=== PATIENT | male | born 1935 | race Caucasian/White ===

== ENCOUNTER 2017-05-22 12:31 | Inpatient (IN) | payer OTHER ==
[~2017-05-22] VITALS: Ht 175.3 cm; Wt 76.7 kg
[~2017-05-22 12:31] MED LIST: ATENOLOL50 MG PO; ATORVASTATIN CA20 MG PO; CILOSTAZOL100 MG PO; FENOFIBRATE145 MG PO; GABAPENTIN300 MG PO; LASIX40 MG PO; POTASSIUM CHLO20 ME1 PO; TAMSULOSIN HCL0.4 MG PO; ZOFRAN ODT4 MG PO
--- OUTSIDE RECORDS SUMMARY | 2017-05-22 12:33 | XMS REPORT ---
[facility] Address Unknown Phone Unavailable Care Team Providers Care Hub Cutter Apprentice Name Role Phone ALFONSO MACIEL Unavailable Unavailable Problems This patient has no known problems. Allergies, Adverse Reactions, Alerts This patient has no known allergies or adverse reactions. Medications This patient has no known medications. Results Test Description Test Time Test Comments Text Results Atomic Results Result Comments CHEST 2 VIEWS [place] [address] Patient Name: ALMA RAZO MR #: [id number] : 1935 Age/Sex: 81/M Req #: [id number] Adm Physician: Ordered by: ALFONSO MACIEL MD Report #: [id number] Location: [facility] Room/Bed: Procedure: [id number] DX/CHEST 2 VIEWS Exam Date: 01/30/17 Exam Time : 1330 REPORT STATUS: Signed PROCEDURE: X-RAY CHEST, TWO VIEWS COMPARISON: None. INDICATIONS: PATIENT FELL ON LEFT KNEE, R/O PUMONARY EDEMA FINDINGS: Lungs are well-inflated. No focal airspace consolidation , pleural effusion, or pneumothorax. Right apical calcified granuloma. Symmetric nodular opacities project over the lower lung zones compatible with nipple shadows. Tortuosity and atherosclerotic calcification of the thoracic aorta with otherwise normal heart size and ovarian vasculature. No acute osseous abnormality. Incompletely healed distal left clavicular fracture. Multilevel degenerative changes of the thoracic spine. CONCLUSION: No acute cardiopulmonary abnormality. No pulmonary edema per clinical query. Age indeterminate though likely subacute-chronic incompletely healed distal left clavicular fracture. Dictated by: Corin Stephenson M.D. on 01/30/2017 at 14:06 Electronically approved by: Corin Stephenson M.D. on 01/30/2017 at 14:06 Dictated By: CORIN STEPHENSON MD [id number] Transcribed By: KAYLA on 01/30/17 1406 COPY TO: ALFONSO MACIEL MD KNEE LEFT THREE VIEWS [place] [address] Patient Name: ALMA RAZO MR #: [id number] : 1935 Age/Sex: 81/M Req #: [id number] Adm Physician: Ordered by: ALFONSO MACIEL MD Report #: [id number] Location: [facility] Room/Bed: Procedure: [id number] DX/KNEE LEFT THREE VIEWS Exam Date: 01/30/17 Exam Time: 1330 REPORT STATUS: Signed PROCEDURE: X- RAY LEFT KNEE, THREE OR MORE VIEWS COMPARISON: None. INDICATIONS: LEFT KNEE PAIN DUE TO FALL FINDINGS: No acute, displaced fracture or dislocation. Moderate tricompartmental joint space narrowing with meniscal calcification and partial medial meniscal extrusion. Small nonspecific suprapatellar joint effusion. Atherosclerotic vascular calcifications. CONCLUSION: No acute osseous abnormality. 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 Dictated by: Corin Stephenson M.D. on 01/30/2017 at 14:09 Electronically approved by: Corin Stephenson M.D. on 01/30/2017 at 14:09 Dictated By: CORIN STEPHENSON MD 140 Transcribed By: KAYLA on 01/30/171408 COPY TO: ALFONSO MACIEL MD
[2017-05-22 14:57] LABS: BASOPHILS % 0.3 % (0.0-1.0); EOSINOPHILS # (AUTO) 0.1 (0.0-0.4); HEMATOCRIT 37.1 % (38.2-49.6); HEMOGLOBIN 12.9 g/dL (14.0-18.0); LYMPHOCYTES # (AUTO) 2.3 (1.0-3.2); LYMPHOCYTES % 28.6 % (18.0-39.1); MEAN CORPUSCULAR HEMOGLOBIN 35.5 pg (28-32); MEAN CORPUSCULAR HGB CONC 34.8 g/dL (31-35); MEAN CORPUSCULAR VOLUME 102.2 fL (81-99); MONOCYTES # (AUTO) 0.6 (0.2-0.8); MONOCYTES % 8.1 % (4.4-11.3); NEUTROPHILS # (AUTO) 4.9 (2.1-6.9); NEUTROPHILS % 61.7 % (38.7-80.0); PLATELET COUNT 160 x10e3/uL (140-360); RED BLOOD COUNT 3.63 x10e6/uL (4.3-5.7); RED CELL DISTRIBUTION WIDTH 11.1 % (11.7-14.4)
[2017-05-22 15:01] LABS: INR 1.25; PROTHROMBIN TIME 14.8 seconds (11.9-14.5)
[2017-05-22 15:02] LABS: PARTIAL THROMBOPLASTIN TIME 29.9 seconds (23.8-35.5)
[2017-05-22 15:10] LABS: ALANINE AMINOTRANSFERASE 21 IU/L (0-55); ALBUMIN 3.2 g/dL (3.5-5.0); ALBUMIN/GLOBULIN RATIO 0.9 (0.8-2.0); ALKALINE PHOSPHATASE 75 IU/L (40-150); ANION GAP 10.9 mmol/L (8-16); BLOOD UREA NITROGEN 18 mg/dL (7-26); BUN/CREATININE RATIO 17 (6-25); CALCIUM 9.8 mg/dL (8.4-10.2); CARBON DIOXIDE 28 mmol/L (22-29); CHLORIDE 103 mmol/L (98-107); CREATINE KINASE 81 IU/L (30-200); CREATININE, SERUM 1.03 mg/dL (0.72-1.25); EST GLOMERULAR FILTRATION RATE > 60 ML/MIN (60-); GLUCOSE 104 mg/dL (74-118); POTASSIUM 3.9 mmol/L (3.5-5.1); SODIUM 138 mmol/L (136-145)
--- NOTE | 2017-05-22 15:13 | Diagnostic Imaging Report ---
PROCEDURE: A single AP view of the chest. COMPARISON: Patients [facility], , CHEST 2 VIEWS, 01/30/2017, 13:10. INDICATIONS: CONGESTION, SHORTNESS OF BREATH FINDINGS: Lines/tubes: None. Lungs: Lungs are well-inflated. Ill-defined patchy air space opacity likely in the left lower lobe. Rest of the lungs is clear. Pleura: There is no pleural effusion or pneumothorax. Heart and mediastinum: Cardiac silhouette is unremarkable. Pulmonary vasculature is normal. Bones: No acute bony abnormality. IMPRESSION: 1. findings may represent atelectasis versus developing pneumonia, in the appropriate clinical setting. Recommend chest PA and lateral in 4-6 weeks after appropriate treatment to document resolution. Peewee Proctor M.D. Dictated by: Peewee Proctor M.D. on 05/22/2017 at 15:14 Electronically approved by: Peewee Proctor M.D. on 05/22/2017 at 15:14
[2017-05-22] MEDS ORDERED: AZITHROMYCIN 500MG/NS 250 ML 250 ML IV ONE (18:15)
[2017-05-22] MEDS ORDERED: CEFTRIAXONE SOD 1 GM VIAL IV ONE (18:15)
[2017-05-22] MEDS ORDERED: ALBUTEROL/IPRATROPIUM 3 ML NEB NEB ONE (18:15)
[2017-05-22] MEDS ORDERED: SODIUM CHLORIDE FLUSH 10 ML SYR INJ PRN (18:30)
[2017-05-22] MEDS ORDERED: AZITHROMYCIN 500MG/SOD CHL 0.9% 250ML BAG IV SCH (18:30)
[2017-05-22] MEDS: ALBUTEROL/IPRATROPIUM 3 ML NEB NEB SCH (19:40)
[2017-05-22 20:12] VITALS: BP 162/79
[2017-05-22] MEDS ORDERED: SODIUM CHLORIDE 0.9% 250ML 250 ML ONE (20:31)
[2017-05-22] MEDS: AZITHROMYCIN 500MG/NS 250 ML 250 ML IV SCH (20:51)
[2017-05-22 21:20] VITALS: BP 162/79
[2017-05-23] VITALS (8 sets, daily range): BP systolic 102–162; BP diastolic 55–88
[2017-05-23] MEDS ORDERED: SYSTANE BALANCE10 ML OP (01:30)
[2017-05-23] MEDS ORDERED: FUROSEMIDE80 MG PO (01:30)
[2017-05-23] MEDS ORDERED: B-12500 MCG PO (01:30)
[2017-05-23] MEDS ORDERED: VITAMIN B-1100 M1 PO (01:30)
[2017-05-23] MEDS ORDERED: ACETAMINOPHEN500 MG PO (01:30)
[2017-05-23] MEDS ORDERED: FOLIC ACID1 MG PO (01:30)
[2017-05-23] MEDS ORDERED: METOPROLOL SUCC25 MG PO (01:30)
[2017-05-23] MEDS ORDERED: ONE DAILY MEN'1 EACH (01:30)
[2017-05-23] MEDS: ALBUTEROL/IPRATROPIUM 3 ML NEB NEB SCH ×3 (07:00→20:50)
--- NOTE | 2017-05-23 08:12 | Diagnostic Imaging Report ---
PROCEDURE: X-RAY CHEST, TWO VIEWS COMPARISON: 05/22/2017. INDICATIONS: LEFT LOWER LOBE PNEUMONIA, SHORTNESS OF BREATH FINDINGS: Patchy left lower lobe airspace disease is unchanged. No new consolidation. Symmetric nodular opacities project over the lower lungs compatible with nipple shadows. No pleural effusion or pneumothorax. Stable cardiomediastinal contour with tortuosity and atherosclerotic calcification of the thoracic aorta. No acute osseous abnormality. CONCLUSION: Unchanged patchy left lower lobe airspace disease which may reflect atelectasis or developing pneumonia in the correct clinical setting. As previously recommended, followup chest radiograph in 6-8 weeks should be performed. Dictated by: Scott Fuentes M.D. on 05/23/2017 at 8:12 Electronically approved by: Scott Fuentes M.D. on 05/23/2017 at 8:12
[2017-05-23] MEDS ORDERED: ONDANSETRON HCL 4 MG ORAL DISINTEGRATING TAB PO PRN (09:15)
[2017-05-23] MEDS ORDERED: PREDNISONE 10 MG TAB PO NR (09:45)
--- NOTE | 2017-05-23 09:45 | History and Physical ---
PCP: Dr. Yasir Jameson CHIEF COMPLAINT: Shortness of breath and wheezing. HISTORY: The patient is an 80-year-old male who has had upper respiratory symptoms for the past 3 weeks. Came to see Dr. Jameson yesterday, and he was sent to the emergency room for evaluation. The patient's WBC was normal at 7.6. There is no left shift. The patient has some dense infiltrates on the chest x-ray. The patient was admitted for further evaluation. PAST MEDICAL HISTORY: Including disease, history of hypertension, approximately 3.5 weeks ago. Ex-smoker for years, hypertension, coronary artery disease, enlarged prostate, arthritis. PAST SURGICAL HISTORY: Noncontributory. SOCIAL HISTORY: Again, the patient is a former smoker. He stopped smoking approximately 3.5 years ago. ALLERGIES: NO KNOWN ALLERGIES. HOME MEDICATIONS: Reviewed. REVIEW OF SYSTEMS: Cough, shortness of breath much improved. PHYSICAL EXAMINATION VITAL SIGNS: Temperature 97, blood pressure 130/66, pulse rate 79, respirations 19. GENERAL: The patient is in no acute distress. HEENT: Normocephalic, atraumatic and nonicteric. NECK: Supple grossly. PULMONARY: Diminished breath sounds at the bases. CARDIOVASCULAR: Regular rate and rhythm. ABDOMEN: Soft and unremarkable. EXTREMITIES: No cyanosis, clubbing or edema. NEURO: . LABORATORY: Sodium 138, potassium , , , , 104. Hemoglobin 12.9, hematocrit and platelets . IMPRESSION 1. Left pleural infiltrate. 2. Pneumonia. PLAN: CT of the chest for better . Continue with IV antibiotics. Continue home medications. . Job#: [id number] KOLBY
--- NOTE | 2017-05-23 10:09 | Diagnostic Imaging Report ---
PROCEDURE: CT CHEST WITHOUT CONTRAST CT scan of the chest WITHOUT intravenous contrast, using standard protocol. TECHNIQUE: The chest was scanned utilizing a multidetector helical scanner from the apex to the level of the adrenal glands. No IV contrast was administered because of referring physician request. Coronal and sagittal multiplanar reformations were obtained. COMPARISON: None. INDICATIONS: Chest x-ray 05/23/2017 FINDINGS: Lines/tubes: None. Lungs and Airways: No consolidations. Linear opacity in the left lower lobe presumably corresponding to the radiographic abnormality , representing subsegmental atelectasis. Scattered foci of linear scar within the bilateral upper lobes and dependent portions of the lower lobes. No bronchiectasis. A small amount of debris within the trachea, without evidence of central airway obstruction. No gross fibrotic change. Pleura: Prominent extrapleural fat on the left. No pleural effusion or pneumothorax. Heart and mediastinum: No axillary, hilar, or mediastinal lymphadenopathy. No ectasia or aneurysmal dilatation of the thoracic aorta. Extensive atherosclerotic vascular disease of the aortic arch, great vessel origins, and coronary arteries. Pulmonary outflow tract is of normal caliber. Heart size is normal. No pericardial effusion. Soft tissues: Mild bilateral gynecomastia. Abdomen: The visualized portions of the liver, spleen, and adrenal glands are unremarkable. Partially visualized hypoattenuating lesion projecting from the upper pole of the right kidney likely represents a simple cyst but is incompletely characterized in the absence of intravenous contrast. Bones: No acute osseous abnormalities. Multilevel degenerative disc changes of the thoracic spine. IMPRESSION: No consolidative pneumonia. Linear opacity in the left lower lobe reflects subsegmental atelectasis and likely corresponds to the finding described on the comparison chest radiograph. Atherosclerotic vascular disease. Dictated by: Scott Fuentes M.D. on 05/23/2017 at 10:09 Electronically approved by: Scott Fuentes M.D. on 05/23/2017 at 10:09
[2017-05-23] MEDS: TAMSULOSIN HCL 0.4 MG CAP PO SCH (10:21)
[2017-05-23] MEDS: LEVOFLOXACIN 500 MG TAB PO SCH (10:21)
[2017-05-23] MEDS: GUAIFENESIN 600 MG TAB PO SCH ×2 (10:21→22:06)
[2017-05-23] MEDS: FOLIC ACID 1 MG TAB PO SCH (10:21)
[2017-05-23] MEDS: THIAMINE HCL 100 MG TAB PO SCH (10:21)
[2017-05-23] MEDS: CILOSTAZOL 100 MG TAB PO SCH (10:21)
[2017-05-23] MEDS: FENOFIBRATE 48 MG TAB PO SCH (10:21)
[2017-05-23] MEDS: ARTIFICIAL TEARS (OPTH) 15 ML BTL OU SCH (11:45)
[2017-05-23] MEDS: AZITHROMYCIN 500MG/NS 250 ML 250 ML IV SCH (18:00)
[2017-05-23] MEDS ORDERED: ATORVASTATIN 20 MG TAB PO SCH (21:00)
[2017-05-23] MEDS ORDERED: ATORVASTATIN 40 MG TAB PO SCH (21:00)
[2017-05-24] VITALS: BP_SYST 102; BP_SYST 110; BP_DIAS 55; BP_DIAS 58
[2017-05-24] MEDS: ALBUTEROL/IPRATROPIUM 3 ML NEB NEB SCH ×3 (00:30→06:42)
[2017-05-24 04:00] VITALS: BP 115/53
[2017-05-24] MEDS ORDERED: NON-FORMULARY MEDICATION (Thiamine Mononitrate (Vitamin B-1) 100 MG) PO SCH (09:00)
[2017-05-24] MEDS ORDERED: FENOFIBRATE 145 MG TAB PO SCH (09:00)
[2017-05-24] MEDS ORDERED: PROPYLENE GLYCOL OP SCH (09:00)
[2017-05-24] MEDS ORDERED: FUROSEMIDE 40 MG TAB PO SCH (09:00)
[2017-05-24] MEDS ORDERED: METOPROLOL SUCCINATE 25 MG TAB XL PO SCH (09:00)
[2017-05-24] MEDS: FENOFIBRATE 48 MG TAB PO SCH (09:00)
[2017-05-24] MEDS ORDERED: NON-FORMULARY MEDICATION (Furosemide 80 MG) PO SCH (09:00)
[2017-05-24] MEDS ORDERED: PREDNISONE 10 MG TAB PO SCH (09:00)
[2017-05-24] MEDS ORDERED: POTASSIUM CHLORIDE 20 MEQ TAB CR PO SCH (09:00)
[2017-05-24] MEDS: ARTIFICIAL TEARS (OPTH) 15 ML BTL OU SCH (09:25)
[2017-05-24] MEDS: TAMSULOSIN HCL 0.4 MG CAP PO SCH (09:25)
[2017-05-24] MEDS: FOLIC ACID 1 MG TAB PO SCH (09:25)
[2017-05-24] MEDS: LEVOFLOXACIN 500 MG TAB PO SCH (09:26)
[2017-05-24] MEDS: CILOSTAZOL 100 MG TAB PO SCH (09:26)
[2017-05-24] MEDS: THIAMINE HCL 100 MG TAB PO SCH (09:26)
[2017-05-24] MEDS: GUAIFENESIN 600 MG TAB PO SCH (09:26)
--- NOTE | 2017-05-24 10:03 | Discharge Summary ---
PCP: Dr. Yasir Jameson The patient was in observation. FINAL DIAGNOSES 1. Acute exacerbation of chronic obstructive pulmonary disease. 2. Acute bronchitis. 3. Reactive airway disease. SUMMARY: Patient is an 81-year-old male came in with shortness of breath and wheezing. Patient received nebulizer treatments. He is doing much better. Chest x-ray showed possible pneumonia, but CT of chest showed only atelectasis. No pneumonia. No consolidation. The patient is otherwise stable. He is an ex-smoker. Patient will be discharged home today. DISCHARGE MEDICATIONS 1. Doxycycline 100 mg b.i.d. for 10 days. 2. Mucinex 600 mg b.i.d. p.r.n. for cough. 3. Symbicort 160 per 4.55 mcg 2 puffs b.i.d. nebulizer. 4. DuoNeb p.r.n. 5. ProAir HFA. 6. Medrol Dosepak to finish. 7. Tessalon Perles 100 mg one q.4 h. as needed for cough. Patient is stable and discharged home today. Advised the patient to follow up with Dr. Yasir Jameson. . The patient is stable. He is comfortable. He is much better, and will be discharged home today. He will resume his home medications. Job#: [id number] KOLBY
[2017-05-24 10:08] VITALS: BP 105/51
== END 2017-05-24 11:15 | disposition home or self-care (01) | DRG 192 ==
LOC: ER 12:50 → ERHOLD 18:53 → MED/SURG 19:54
PROVIDERS: ADMIT Internal Medicine; ATTEND Internal Medicine
DX: J44.1 Chronic obstructive pulmonary disease with (acute) exacerbation (principal); I10 Essential (primary) hypertension; J20.9 Acute bronchitis, unspecified; J44.0 Chronic obstructive pulmonary disease with (acute) lower respiratory infection; Z87.891 Personal history of nicotine dependence; I25.10 Atherosclerotic heart disease of native coronary artery without angina pectoris
CPT/HCPCS: 36415; 71045; 71046; 71250; 80053; 82550; 82553; 82948; 83880; 84484; 85025; 85610; 85730; 87040; 87400; 93005; 94640; 99284; J0456; J0696; J3411; J7050

== ENCOUNTER → 2018-01-30 | Day surgery (SDC) | payer OTHER ==
[~2018-01-30] MED LIST changes: +ACETAMINOPHEN/CODEINE 300MG - 30MG TAB ONE; +ACETAMINOPHEN500 MG PO; +B-12500 MCG PO; +BELLADONNA/OPIUM 60 MG SUPP PR ONE; +CEFAZOLIN SOD 1 GM VIAL ONE; +DEXAMETHASONE SOD PHOS INJ 4 MG/ML VIAL ONE; +FENTANYL CITRATE/PF 100MCG/2 ML INJ ONE; +FOLIC ACID1 MG PO; +FUROSEMIDE80 MG PO; +IOPAMIDOL 610MG/1ML 300 MG/ML VIAL IV ONE; +LIDOCAINE HCL 2% LOCAL INJ 5 ML SDV VIAL INJ ONE; +METOPROLOL SUCC25 MG PO; +MIDAZOLAM HCL 2 MG/2 ML VIAL ONE; +ONDANSETRON HCL INJ 2 MG/ML VIAL ONE; +ONE DAILY MEN'1 EACH; +PROPOFOL IV EMULSION 10 MG/ML 20 ML VIAL ONE; +SEVOFLURANE INHAL SOLN 250 ML PEN BTL ONE; +SYSTANE BALANCE10 ML OP; +VITAMIN B-1100 M1 PO
[2018-01-30 12:25] VITALS: BP 134/68
--- NOTE | 2018-01-30 14:18 | Operative Report ---
DATE OF PROCEDURE: January 30, 2018 SERVICE: Urology. PREOPERATIVE DIAGNOSES 1. Multiple bladder tumors. 2. Hematuria. 3. BPH. POSTOPERATIVE DIAGNOSES 1. Multiple bladder tumors. 2. Hematuria. 3. BPH. OPERATION PERFORMED 1. Cystoscopy and bilateral retrograde pyelograms under fluoroscopic control. 2. Transurethral resection of multiple bladder tumors, all together more than 5 cm in size. 3. Interpretation of x-ray, radiologist not present. 4. Supervision of fluoroscopy. WORK FORCE ADVISOR: None. ANESTHESIA: General. CLINICAL INDICATION NOTE: This is an 82-year-old patient who was found to have bladder tumors. He was brought for assessment of the upper tract and resection of the tumors. Procedure was discussed with the patient and his son. Potential benefits and complications explained and accepted. DESCRIPTION OF PROCEDURE AND FINDINGS: After proper level of anesthesia was achieved, the patient was placed in lithotomy position, prepped and draped in the usual sterile fashion. Urethra was inspected and is unremarkable. The outlet is obstructed by a large prostate. Bladder is somewhat trabeculated. Several areas of tumor are present, 2 areas in the dome and 1 on the trigone. Both ureteral orifices were identified. Cone-tip catheters were used for bilateral retrograde pyelograms under fluoroscopic control. No intrinsic lesions were identified in the upper collecting system or ureters. Following this, resectoscope was inserted, and systematic resection of all tumor was done. All the areas that were resected were carefully coagulated. No significant bleeding was noticed. Following this, a B and O suppository was placed and a 22-Kyrgyz, 3-way Horn catheter with 30-mL balloon was inserted and connected to continuous irrigation. Patient tolerated the procedure well. The specimen was sent to pathology in formalin. Patient will be keeping the Horn for 10 days. Follow up next week in my office. Job#: [id number]
== END | disposition home or self-care (01) ==
LOC: OR 07:23
PROVIDERS: ATTEND Urology
DX: C67.1 Malignant neoplasm of dome of bladder (principal); C67.0 Malignant neoplasm of trigone of bladder; N40.0 Benign prostatic hyperplasia without lower urinary tract symptoms; I12.9 Hypertensive chronic kidney disease with stage 1 through stage 4 chronic kidney disease, or unspecified chronic kidney disease; N18.9 Chronic kidney disease, unspecified; R73.03 Prediabetes; I45.10 Unspecified right bundle-branch block; Z01.810 Encounter for preprocedural cardiovascular examination
CPT/HCPCS: 36415; 52240; 74420; 82948; 88305; 93005; C1758; J0690; J1100; J2001; J2250; J2405; J2704; Q9967

== ENCOUNTER → 2018-06-05 | Day surgery (SDC) | payer MEDICARE ==
[2018-06-04 11:36] LABS: BASOPHILS % 0.3 % (0.0-1.0); EOSINOPHILS # (AUTO) 0.1 (0.0-0.4); EOSINOPHILS % 1.2 % (0.0-6.0); HEMATOCRIT 35.1 % (38.2-49.6); HEMOGLOBIN 11.3 g/dL (14.0-18.0); LYMPHOCYTES # (AUTO) 1.9 (1.0-3.2); LYMPHOCYTES % 24.8 % (18.0-39.1); MEAN CORPUSCULAR HEMOGLOBIN 31.7 pg (28-32); MEAN CORPUSCULAR HGB CONC 32.2 g/dL (31-35); MEAN CORPUSCULAR VOLUME 98.6 fL (81-99); MONOCYTES # (AUTO) 0.7 (0.2-0.8); MONOCYTES % 9.7 % (4.4-11.3); NEUTROPHILS # (AUTO) 4.8 (2.1-6.9); NEUTROPHILS % 63.6 % (38.7-80.0); PLATELET COUNT 161 x10e3/uL (140-360); RED BLOOD COUNT 3.56 x10e6/uL (4.3-5.7); RED CELL DISTRIBUTION WIDTH 12.9 % (11.7-14.4)
[2018-06-04 11:52] LABS: ANION GAP 9.8 mmol/L (8-16); CALCIUM 9.5 mg/dL (8.4-10.2); CREATININE, SERUM 1.16 mg/dL (0.72-1.25); POTASSIUM 3.8 mmol/L (3.5-5.1)
--- NOTE | 2018-06-04 12:54 | Diagnostic Imaging Report ---
EXAMINATION: PA and lateral views of the chest. COMPARISON: None CLINICAL HISTORY: Preoperative exam for bladder surgery DISCUSSION: Lines/tubes: None. Lungs: The lungs are well inflated and clear. There is no evidence of pneumonia or pulmonary edema. Mild prominence of the pulmonary interstitium, likely age-related fibrotic changes. Pleura: There is no pleural effusion or pneumothorax. Heart and mediastinum: Atherosclerotic calcification of the thoracic aorta. Normal heart size. Bones and soft tissues: No acute bony abnormalities. Degenerative changes in the thoracic spine IMPRESSION: No acute cardiopulmonary abnormalities. Signed by: Dr. Scott Fuentes M.D. on 06/04/2018 12:50 PM
[~2018-06-05] MED LIST changes: -ACETAMINOPHEN/CODEINE 300MG - 30MG TAB ONE; -CEFAZOLIN SOD 1 GM VIAL ONE; +CEFAZOLIN SOD 1 GM/NS 50ML 50 ML IV ONE; +GLIPIZIDE ER5 MG PO; -MIDAZOLAM HCL 2 MG/2 ML VIAL ONE; -ONDANSETRON HCL INJ 2 MG/ML VIAL ONE; +ONDANSETRON HCL INJ 2MG/ML 2ML 2 MG/ML VIAL ONE
[2018-06-05 11:33] VITALS: BP 145/65
--- NOTE | 2018-06-06 04:42 | Operative Report ---
DATE OF PROCEDURE: 06/05/2018 SURGEON: Bri Sanchez MD SERVICE: Urology. PREOPERATIVE DIAGNOSES: 1. Hematuria. 2. Recurrent bladder tumor. POSTOPERATIVE DIAGNOSES: 1. Hematuria. 2. Recurrent bladder tumor. OPERATIONS PERFORMED: 1. Cystoscopy and bilateral retrograde pyelograms under fluoroscopy control. This IS done as part of the assessment of the hematuria. 2. Interpretation of x-ray, radiologist not present. 3. Supervision of fluoroscopy, radiologist is not present. 4. Transurethral resection of multifocal recurrent tumor seen in the dome of the bladder as well as of the lateral avilez. All the lesions were above the trigone. CAD TECHNICIAN: None. ANESTHESIA: General. CLINICAL INDICATION: This is an 82-year-old patient, it was found in the past to have transitional cell cancer of the bladder. He was treated with 6 instillations of BCG. Cystoscopy in the office revealed recurrent tumor. He was brought for resection. Procedures were discussed with the patient and he was advised about the finding, potential benefit, and complication of the procedure and accepted it. DESCRIPTION OF PROCEDURE AND FINDINGS: After appropriate level of anesthesia was achieved, the patient was placed in lithotomy position, prepped and draped in the usual sterile fashion. The urethra was inspected and appeared to be unremarkable. The bladder outlet is obstructed by enlarged prostate. Bladder was trabeculated. Several areas of tumor above the trigone on the left side close to the dome and at the dome identified. With significant difficulty, the tumors were resected. This was difficult due to location of the tumors. The tumors were sent to pathology. Following this, a coagulation electrode was inserted into the resecting scope and careful coagulation of any visible area of resection as well as margins and base of tumors were done. Following this, a 22-Croatian 30 mL 3-way Horn catheter was inserted and connected to continuous irrigation. Water also used for irrigation during the case. A B and O suppository was inserted. The patient tolerated the procedure well and was transferred in satisfactory condition to recovery. Postoperative instructions given. The patient advised that should any acute problem arouse, to come to the ER or call the office. Bri Sanchez MD NH/MODL /[id number]
== END | disposition home or self-care (01) ==
LOC: OR 07:05
PROVIDERS: ATTEND Urology
DX: C67.1 Malignant neoplasm of dome of bladder (principal); C67.2 Malignant neoplasm of lateral wall of bladder
CPT/HCPCS: 36415 ×2; 52235; 71046; 74420; 80048; 82948; 85025; 88305; 93005; C1758; J0690; J1100; J2001; J2405; J2704; Q9967

== ENCOUNTER → 2018-07-17 | Outpatient (CLI) | payer MEDICARE ==
[~2018-07-17] MED LIST changes: -BELLADONNA/OPIUM 60 MG SUPP PR ONE; -CEFAZOLIN SOD 1 GM/NS 50ML 50 ML IV ONE; -DEXAMETHASONE SOD PHOS INJ 4 MG/ML VIAL ONE; -FENTANYL CITRATE/PF 100MCG/2 ML INJ ONE; -IOPAMIDOL 610MG/1ML 300 MG/ML VIAL IV ONE; -LIDOCAINE HCL 2% LOCAL INJ 5 ML SDV VIAL INJ ONE; -ONDANSETRON HCL INJ 2MG/ML 2ML 2 MG/ML VIAL ONE; -PROPOFOL IV EMULSION 10 MG/ML 20 ML VIAL ONE; -SEVOFLURANE INHAL SOLN 250 ML PEN BTL ONE
--- NOTE | 2018-07-17 12:51 | Diagnostic Imaging Report ---
EXAM: CT Abdomen and Pelvis WITHOUT contrast INDICATION: Bladder neoplasm COMPARISON: None. TECHNIQUE: Abdomen and pelvis were scanned utilizing a multidetector helical scanner from the lung base to the pubic symphysis without administration of IV contrast. Absence of intravenous contrast decreases sensitivity for detection of focal lesions and vascular pathology. Coronal and sagittal reformations were obtained. Routine protocol was performed. Dose modulation, iterative reconstruction, and/or weight based adjustment of the mA/kV was utilized to reduce the radiation dose to as low as reasonably achievable. IV CONTRAST: None. ORAL CONTRAST: None RADIATION DOSE: Total DLP: 534.08 mGy*cm Estimated effective dose: (DLP x 0.015 x size factor) mSv COMPLICATIONS: None FINDINGS: LINES and TUBES: None. LOWER THORAX: Lung bases clear. There is a small calcified granuloma at the left lung base. Heart size normal with extensive coronary artery calcification and calcified mitral annulus. Small hiatus hernia with mild wall thickening of distal esophagus. HEPATOBILIARY: No focal hepatic lesions. No biliary ductal dilation. GALLBLADDER: There is a 2.0 cm calculus in the gallbladder. No wall thickening. SPLEEN: No splenomegaly. PANCREAS: There is a 2.2 cm cystic mass at the anterior aspect of the pancreatic head. There is another 1.6 cm cystic mass at the uncinate process. There are scattered punctate calcifications related to the head and tail of the pancreas. ADRENALS: No adrenal nodules KIDNEYS/URETERS: No hydronephrosis. At the upper pole right kidney there is an exophytic 2.2 cm mass, cyst density. At the upper pole left kidney there is a 1.2 cm intracortical mass, cyst density. There is a 0.5 cm nonobstructing intrarenal calculus at the lower pole left collecting system. Other central calcifications in both kidneys are likely vascular. GI TRACT: No abnormal distention, wall thickening, or evidence of bowel obstruction. There is a large volume of retained stool throughout the colon and rectum compatible with constipation. Anastomotic sutures are seen at the proximal transverse colon related to partial right hemicolectomy. PELVIC ORGANS/BLADDER: There is localized thickening upper anterior bladder wall. No discrete abnormal mass or fluid collection in the pelvis. LYMPH NODES: No dominant lymph node mass is seen in the abdomen, retroperitoneum or pelvis. VESSELS: There is an infrarenal saccular aneurysm of the abdominal aorta measuring 3.4 x 3.4 cm transversely. The aneurysm measures 2.9 cm in length. There is extensive aortoiliac atherosclerotic calcification. There is aneurysmal dilatation of the left common iliac artery measuring 1.9 cm diameter while the right common iliac measures 1.4 cm. Extensive atherosclerotic calcifications extend into the superior mesenteric artery suggesting possible stenosis. PERITONEUM / RETROPERITONEUM: No pneumoperitoneum or ascites. BONES: No acute or suspicious bony lesions. Bones are diffusely demineralized. SOFT TISSUES: Superficial surrounding soft tissue unremarkable. IMPRESSION: 1. There is localized thickening of the anterior superior bladder wall. This may be related to the stated diagnosis of bladder neoplasm. 2. There are 2.2 and 1.6 cm cystic masses of the pancreas. Punctate calcifications are seen in the head and tail of the pancreas. These may be residual from previous pancreatitis and correlation with prior examinations, if possible, recommended. If no comparison to prior exam possible, recommend pancreatic protocol MRI for further evaluation. 3. Nonobstructing 5 mm intrarenal calculus on the left. 4. 3.4 cm saccular aneurysm of the infrarenal abdominal aorta. There is extensive calcified atherosclerotic plaque of the abdominal aorta, iliac arteries, SMA and coronary arteries. Mild left iliac artery aneurysmal dilatation, calcified plaque in the mid SMA possibly associated with stenosis. 5. Cholelithiasis. No CT evidence for acute cholecystitis. 6. Small hiatus hernia with wall thickening of the distal esophagus, possibly related to esophagitis. Staff: Ernesto Signed by: Dr. Chilo Orozco M.D. on 07/17/2018 12:48 PM
--- NOTE | 2018-07-17 20:32 | Diagnostic Imaging Report ---
Bone Scan, delayed phase INDICATION: C67.9 Malignant neoplasm of bladder COMPARISON: CT abdo/pelvis 07/17/2018 REPORT: Approximately 3 hours following intravenous administration of 27.5 mCi of Tc-99m MDP, delayed total body images in the anterior and posterior projections and selected spot images were obtained. Degenerative changes are seen in the upper cervical spine, T4-T9, L3 and in the right sternoclavicular junction as well as in the hands. Otherwise, distribution of tracer activity is unremarkable throughout the skeletal system. No abnormal accumulation of tracer is seen in the soft tissues or urinary tract. IMPRESSION: No scan evidence of metastatic bone disease. Signed by: Dr. Marnie Trejo M.D. on 07/17/2018 8:29 PM
== END ==
LOC: NM 08:39
PROVIDERS: ATTEND Urology
DX: C67.9 Malignant neoplasm of bladder, unspecified (principal)
CPT/HCPCS: 74176; 78306; A9503

== ENCOUNTER → 2018-07-30 | Outpatient (CLI) | payer MEDICARE ==
--- NOTE | 2018-07-30 15:39 | Diagnostic Imaging Report ---
EXAMINATION: CHEST 2 VIEWS INDICATION: Malignant bladder neoplasm. COMPARISON: Chest radiograph 06/04/2018. FINDINGS: TUBES and LINES: None. LUNGS: Lungs are well inflated. There is no evidence of pneumonia or pulmonary edema. PLEURA: No pleural effusion or pneumothorax. HEART AND MEDIASTINUM: The cardiomediastinal silhouette is unremarkable. There are atherosclerotic calcifications within the aorta. BONES AND SOFT TISSUES: No acute osseous abnormality. UPPER ABDOMEN: No free air under the diaphragm. IMPRESSION: No acute radiographic abnormality. Signed by: Dr. Qi Garcia MD on 07/30/2018 3:35 PM
== END ==
LOC: RAD 13:45
PROVIDERS: ATTEND Urology
DX: C67.9 Malignant neoplasm of bladder, unspecified (principal)
CPT/HCPCS: 71046

== ENCOUNTER → 2018-09-19 | Day surgery (SDC) | payer MEDICARE ==
[2018-09-18 13:04] LABS: BASOPHILS % 0.4 % (0.0-1.0); EOSINOPHILS # (AUTO) 0.1 (0.0-0.4); HEMATOCRIT 39.9 % (38.2-49.6); HEMOGLOBIN 12.9 g/dL (14.0-18.0); LYMPHOCYTES # (AUTO) 1.7 (1.0-3.2); LYMPHOCYTES % 23.3 % (18.0-39.1); MEAN CORPUSCULAR HEMOGLOBIN 32.3 pg (28-32); MEAN CORPUSCULAR HGB CONC 32.3 g/dL (31-35); MONOCYTES # (AUTO) 0.7 (0.2-0.8); MONOCYTES % 9.1 % (4.4-11.3); NEUTROPHILS # (AUTO) 4.8 (2.1-6.9); NEUTROPHILS % 65.9 % (38.7-80.0); PLATELET COUNT 155 x10e3/uL (140-360); RED BLOOD COUNT 3.99 x10e6/uL (4.3-5.7); RED CELL DISTRIBUTION WIDTH 14.1 % (11.7-14.4)
[2018-09-18 13:38] LABS: ANION GAP 14.4 mmol/L (8-16); CREATININE, SERUM 1.39 mg/dL (0.72-1.25); POTASSIUM 4.4 mmol/L (3.5-5.1)
[~2018-09-19] MED LIST changes: +ACETAMINOPHEN 1000 MG/100 ML IV ONE; +ACETAMINOPHEN325 M1 PO; +AMIODARONE HCL200 MG PO; +BACTRIM DS TAB1 EACH PO; +BELLADONNA/OPIUM 30 MG SUPP RC ONE; +CEFAZOLIN SOD 1 GM/NS 50ML 100 ML IV ONE; +COLACE100 MG PO; +DEXAMETHASONE SOD PHOS INJ 4 MG/ML VIAL ONE; +Eliquis PO; +FUROSEMIDE40 MG PO; +IOPAMIDOL 610MG/1ML 300 MG/ML VIAL IV ONE; +LIDOCAINE HCL 2% LOCAL INJ 5 ML SDV VIAL INJ ONE; +PROPOFOL IV EMULSION 10 MG/ML 20 ML VIAL ONE; +ROCURONIUM BROMIDE 10 MG/ML 5ML VIAL ONE; +SEVOFLURANE INHAL SOLN 250 ML PEN BTL ONE; +TYLENOL WITH C1 EACH PO
[2018-09-19 12:40] VITALS: BP 148/79
--- NOTE | 2018-09-19 20:12 | Operative Report ---
DATE OF PROCEDURE: 09/19/2018 SURGEON: Bri Sanchez MD SERVICE: Urology. PREOPERATIVE DIAGNOSES: 1. Transitional cell cancer of the bladder, invasive and recurrent. 2. Hematuria. 3. Benign prostatic hyperplasia. POSTOPERATIVE DIAGNOSES: 1. Transitional cell cancer of the bladder, invasive and recurrent. 2. Hematuria. 3. Benign prostatic hyperplasia. OPERATIONS PERFORMED: 1. Cystoscopy and bilateral retrograde pyelograms under fluoroscopic control. 2. Interpretation of x-ray done by me, radiologist not present. 3. Supervision of fluoroscopy done by me, radiologist not present. 4. Transurethral resection of the bladder tumor in the posterior upper part of the bladder, 2 bladder biopsies. TORCH STRAIGHTENER AND HEATER: None. ANESTHESIA: General. 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 The options of treatment discussed including radical cystectomy and the patient elected not to have it done. We will consider in the future other alternatives. Presently, he was brought for re-resection of the area of the tumor and assessment of the upper tracts. This was discussed with him and he okayed it. DESCRIPTION OF PROCEDURE AND FINDINGS: After appropriate level of anesthesia was achieved, the patient was placed in lithotomy position, prepped and draped in a sterile fashion. The bladder outlet is somewhat obstructed by a large prostate that has somewhat trabeculated. Tumor is present in the posterior area of the bladder to the right side, appeared to be a flat and probably invasive previous pathology. Both ureteral orifices were identified. Open-end catheter was inserted and bilateral retrograde pyelograms were done under fluoroscopic control. No intrinsic lesions were identified. Drainage was prompt. Following this resectoscope was inserted and the area of the tumor was resected. Additional area of biopsy of mucosa was done. Biopsies were sent separately to pathology. Any visible bleeding ports were carefully coagulated. Following this, a 22 three-way Horn catheter was inserted, connected to continuous irrigation with sterile water. The patient was transferred to recovery room. Horn will be kept for about six days, followup given. Bri Sanchez MD NH/MODL /[id number]
== END | disposition home or self-care (01) ==
LOC: OR 09:05
PROVIDERS: ATTEND Urology
DX: D30.3 Benign neoplasm of bladder (principal); N40.0 Benign prostatic hyperplasia without lower urinary tract symptoms; I25.10 Atherosclerotic heart disease of native coronary artery without angina pectoris; I50.9 Heart failure, unspecified; E11.9 Type 2 diabetes mellitus without complications; I45.10 Unspecified right bundle-branch block; Z01.810 Encounter for preprocedural cardiovascular examination; Z01.812 Encounter for preprocedural laboratory examination; Z79.84 Long term (current) use of oral hypoglycemic drugs
CPT/HCPCS: 36415; 52005; 52214; 74420; 80048; 85025; 88305; 88307; 88342; 93005; C1758; J0131; J0690; J1100; J2001; J2704; Q9967

== ENCOUNTER 2018-11-11 10:00 | Inpatient (IN) | payer MEDICARE ==
[2018-11-07 12:16] LABS: BASOPHILS % 0.4 % (0.0-1.0); EOSINOPHILS # (AUTO) 0.1 (0.0-0.4); EOSINOPHILS % 1.6 % (0.0-6.0); HEMATOCRIT 39.9 % (38.2-49.6); HEMOGLOBIN 13.2 g/dL (14.0-18.0); LYMPHOCYTES # (AUTO) 1.4 (1.0-3.2); LYMPHOCYTES % 25.5 % (18.0-39.1); MEAN CORPUSCULAR HEMOGLOBIN 33.3 pg (28-32); MEAN CORPUSCULAR HGB CONC 33.1 g/dL (31-35); MEAN CORPUSCULAR VOLUME 100.8 fL (81-99); MONOCYTES # (AUTO) 0.5 (0.2-0.8); MONOCYTES % 9.6 % (4.4-11.3); NEUTROPHILS # (AUTO) 3.5 (2.1-6.9); NEUTROPHILS % 62.4 % (38.7-80.0); PLATELET COUNT 169 x10e3/uL (140-360); RED BLOOD COUNT 3.96 x10e6/uL (4.3-5.7); RED CELL DISTRIBUTION WIDTH 13.3 % (11.7-14.4)
[2018-11-07 12:44] LABS: ANION GAP 13.3 mmol/L (8-16); CREATININE, SERUM 1.32 mg/dL (0.72-1.25); POTASSIUM 4.3 mmol/L (3.5-5.1)
[~2018-11-11] VITALS: Ht 175.3 cm; Wt 73.4 kg
[2018-11-11] VITALS (9 sets, daily range): BP systolic 103–162; BP diastolic 52–79
[~2018-11-11 10:00] MED LIST changes: -ACETAMINOPHEN 1000 MG/100 ML IV ONE; -AMIODARONE HCL200 MG PO; -BACTRIM DS TAB1 EACH PO; -BELLADONNA/OPIUM 30 MG SUPP RC ONE; -CEFAZOLIN SOD 1 GM/NS 50ML 100 ML IV ONE; -COLACE100 MG PO; -DEXAMETHASONE SOD PHOS INJ 4 MG/ML VIAL ONE; -Eliquis PO; -IOPAMIDOL 610MG/1ML 300 MG/ML VIAL IV ONE; -LIDOCAINE HCL 2% LOCAL INJ 5 ML SDV VIAL INJ ONE; -PROPOFOL IV EMULSION 10 MG/ML 20 ML VIAL ONE; -ROCURONIUM BROMIDE 10 MG/ML 5ML VIAL ONE; -SEVOFLURANE INHAL SOLN 250 ML PEN BTL ONE; -TYLENOL WITH C1 EACH PO
[2018-11-11] MEDS ORDERED: CEFAZOLIN SOD 1 GM/NS 50ML 100 ML IV ONE (10:27)
[2018-11-11] MEDS ORDERED: IOPAMIDOL 610MG/1ML 300 MG/ML VIAL IV ONE (11:13)
[2018-11-11] MEDS ORDERED: ONDANSETRON HCL INJ 2MG/ML 2ML 2 MG/ML VIAL ONE (14:33)
[2018-11-11] MEDS ORDERED: PROPOFOL IV EMULSION 10 MG/ML 20 ML VIAL ONE (14:33)
[2018-11-11] MEDS ORDERED: LIDOCAINE HCL 2% LOCAL INJ 5 ML SDV VIAL INJ ONE (14:33)
[2018-11-11] MEDS ORDERED: DEXAMETHASONE SOD PHOS INJ 4 MG/ML VIAL ONE (14:33)
[2018-11-11] MEDS ORDERED: SEVOFLURANE INHAL SOLN 250 ML PEN BTL ONE (14:33)
[2018-11-11] MEDS ORDERED: ROCURONIUM BROMIDE 10 MG/ML 5ML VIAL ONE (14:33)
[2018-11-11] MEDS ORDERED: NEOSTIGMINE 5 MG/5ML SYR ONE (14:33)
[2018-11-11] MEDS ORDERED: GLYCOPYRROLATE INJ 1MG/ 5 ML SYR ONE (14:33)
[2018-11-11] MEDS: SOD CHL 0.45%/POT CHL 20MEQ 1,000 ML IV SCH ×2 (14:42→20:13)
[2018-11-11] MEDS ORDERED: ATROPINE SULFATE 0.1 MG/ML 10ML SYR ONE (14:43)
[2018-11-11] MEDS ORDERED: ONDANSETRON HCL INJ 2MG/ML 2ML 2 MG/ML VIAL IV PRN (14:45)
[2018-11-11] MEDS ORDERED: MORPHINE SULFATE 1 MG/ML 30ML PCA IV PRN (14:45)
[2018-11-11] MEDS ORDERED: ACETAMINOPHEN 1000 MG/100 ML IV PRN (14:45)
[2018-11-11] MEDS ORDERED: NALOXONE HCL INJ 0.4 MG/ML AMP IV PRN (14:45)
[2018-11-11] MEDS ORDERED: DIPHENHYDRAMINE HCL INJ 50 MG/ML VIAL IM PRN (14:45)
[2018-11-11] MEDS ORDERED: IBUPROFEN 800MG/ 250ML 250 ML IV ONE (14:48)
[2018-11-11 16:23] LABS: BASOPHILS % 0.1 % (0.0-1.0); EOSINOPHILS % 0.2 % (0.0-6.0); HEMATOCRIT 40.7 % (38.2-49.6); HEMOGLOBIN 13.2 g/dL (14.0-18.0); LYMPHOCYTES # (AUTO) 0.9 (1.0-3.2); LYMPHOCYTES % 10.6 % (18.0-39.1); MEAN CORPUSCULAR HEMOGLOBIN 33.4 pg (28-32); MEAN CORPUSCULAR HGB CONC 32.4 g/dL (31-35); MONOCYTES # (AUTO) 0.2 (0.2-0.8); MONOCYTES % 2.4 % (4.4-11.3); NEUTROPHILS # (AUTO) 7.6 (2.1-6.9); NEUTROPHILS % 86.1 % (38.7-80.0); PLATELET COUNT 131 x10e3/uL (140-360); RED BLOOD COUNT 3.95 x10e6/uL (4.3-5.7); RED CELL DISTRIBUTION WIDTH 13.2 % (11.7-14.4)
[2018-11-11 16:41] LABS: CALCIUM 9.7 mg/dL (8.4-10.2); CREATININE, SERUM 1.48 mg/dL (0.72-1.25)
--- NOTE | 2018-11-11 16:46 | Diagnostic Imaging Report ---
EXAMINATION: CHEST SINGLE (PORTABLE) INDICATION: Assess for pneumothorax. COMPARISON: Chest radiograph of 07/30/2018 FINDINGS: LINES/TUBES:NG tube projects below the diaphragm with tip not visualized. EKG leads overlie the chest. LUNGS:The lungs are moderately inflated. No focal consolidation or pulmonary edema. Mild subsegmental atelectasis at both lung bases. PLEURA:No pleural effusion or pneumothorax. MEDIASTINUM:The cardiomediastinal silhouette appears normal in size and shape. Atherosclerotic calcifications of the thoracic aorta. BONES/SOFT TISSUES:No acute osseous injury. ABDOMEN:No free air under the diaphragm. IMPRESSION: No pneumothorax. No focal pneumonia or pulmonary edema. NG tube projects below the diaphragm with tip not seen. Signed by: Femi Martinez MD on 11/11/2018 4:42 PM
[2018-11-11] MEDS ORDERED: ACETAMINOPHEN 1000 MG/100 ML 100 ML IV PRN (17:00)
[2018-11-11] MEDS ORDERED: FENTANYL CITRATE/PF 100MCG/2 ML INJ ONE (18:34)
[2018-11-11] MEDS: SODIUM CHLORIDE 0.9% 250ML IRRIG IR SCH ×3 (18:45→23:23)
[2018-11-11] MEDS: ALBUTEROL SULF 0.083% NEB SOLN 3 ML NEB NEB SCH ×2 (19:40→23:00)
[2018-11-11] MEDS: CEFAZOLIN SOD 1 GM/NS 50ML 50 ML IV SCH (20:13)
[2018-11-12] VITALS (26 sets, daily range): BP systolic 95–137; BP diastolic 36–80
--- NOTE | 2018-11-12 00:11 | Operative Report ---
DATE OF PROCEDURE: 11/11/2018 SURGEON: Bri Sanchez MD SERVICE: Urology. PREOPERATIVE DIAGNOSES: 1. 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 2. Hematuria. 3. BPH. 4. Coronary artery disease. 5. Obesity. POSTOPERATIVE DIAGNOSES: 1. 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 2. Hematuria. 3. BPH. 4. Coronary artery disease. 5. Obesity. OPERATION PERFORMED: 1. Cystoscopy and bilateral retrograde pyelograms under fluoroscopic control. 2. Placement of bilateral ureteral catheters. 3. Interpretation of x-ray radiologist not present. 4. Supervision of fluoroscopy radiologist not present. 5. Bilateral pelvic lymphadenectomy. 6. Partial cystectomy. REGULATORY AFFAIRS INTERNSHIP: Dr. Rosas Sanchez. TYPE OF ANESTHESIA: General. CLINICAL INDICATION NOTE: This is an 83-year-old patient, who was found to have invasive cancer of the bladder. Various options of treatment discussed with the patient. The tumor appeared to be above the trigone toward the right side. The patient has also a history of hematuria as well as coronary artery disease. The patient was brought for all possible partial cystectomy if cystoscopy would verify the position of the tumor. The procedure was discussed with the patient and his son. The potential benefit and complication discussed, explained, and accepted. Of note, the patient does not want a robotic cystectomy and ileal conduit. DESCRIPTION OF THE PROCEDURE AND FINDINGS: The patient was brought to the cystoscopy room. After achieving the proper level of anesthesia, he was placed in lithotomy position, prepped and draped in a sterile fashion. Urethra inspected was unremarkable. Bladder was obstructed by enlarged prostate. Bladder was trabeculated. Above the trigone on the right side, a tumor several centimeter in size was noticed. No other areas of tumor were present. Both ureteral orifices were in normal position. Open-end catheters were then inserted and retrograde pyelogram demonstrating normal upper tracts. Following this, open-end five catheters were inserted and advanced up to the kidney bilaterally. A 22-Syriac 10 mL Horn catheter was then inserted and both ureteral catheters were inserted into the Horn. At that point, the patient was transferred to the open surgical room. He was placed in supine position and re-prepped and draped in a sterile fashion. A midline incision was made between the symphysis pubis and at the umbilicus. Dissection of the bilateral pelvic lymphadenectomy was done. The obturator fossa medial to the iliac vein were removed and sent separately to pathology. No enlarged nodes were identified. No active bleeding was noticed. The obturator nerves were preserved on both sides. Following this, the bladder was filled up with water and the incision was then made over the anterior surface of the bladder. 3-0 silk stay sutures were used for retraction. The tumor was identified. It was excised with the covering peritoneum and the margin of more than 1 cm circumferentially. The tumor was removed and any visible bleeding points were carefully coagulated. Following this, the posterior aspect of the bladder over the peritoneum was closed with a 2-0 interrupted chromic catguts. Following this, the bladder was closed in two layers using 2-0 chromic catgut. The first layer was interrupted [id number] and following this, the second layer was closed with interrupted imbricating ztdenp-xy-hflnm sutures. No active bleeding was noticed at that point. The abdominal wound was carefully irrigated with large amounts of distilled water. The bladder was also irrigated with distilled water and no active bleeding was noticed. The wounds were drained using a 19 Victoriano drain that was placed through a separate stab incision and fixed to the skin with nylon suture. The wound was then closed in layer. The rectus abdominis was approximated with chromic catgut and Vicryl 0 interrupted pckfxp-as-inlfn were used to close the fascia. Skin was approximated with skin elizabeth. Horn catheter was kept in place as well as drain. The patient tolerated procedure well and was transferred in satisfactory condition. The ureteral catheters were removed at the end of the case. Estimated blood loss maybe 250 mL. The patient was transferred in satisfactory condition to recovery room. Medical consult and treatment will be obtained due to his medical problems. MD JUAN CARLOS Mackey/STEFANY /[id number]
--- NOTE | 2018-11-12 01:51 | Consultation ---
DATE OF CONSULTATION: Cardiology Consultation CHIEF COMPLAINT: The patient is an 83-year-old with partial cystectomy. HISTORY OF PRESENT ILLNESS: The patient is an 83-year-old, who underwent partial cystectomy today for bladder tumor. Postoperatively, the patient was noted to have frequent premature atrial contractions and some sinus bradycardia. The patient has had no chest pain and no shortness of breath. PAST MEDICAL HISTORY: Significant for: 1. Diabetes mellitus. 2. Hypertension. 3. Hyperlipidemia. MEDICATIONS: At home include Hytrin, furosemide, atorvastatin, fenofibrate, and glipizide. SOCIAL HISTORY: The patient does not drink and does not smoke. FAMILY HISTORY: There is no family history of hypertension. PHYSICAL EXAMINATION: GENERAL: The patient is a well-developed, well-nourished male, in no obvious distress. VITAL SIGNS: Included a blood pressure of 140/70, pulse was 64, the temperature was 98.6. HEAD, EARS, EYES, NOSE, AND THROAT: The patient's cranium was normocephalic and atraumatic. Extraocular muscles were intact. Sclerae were anicteric. Pupils were equal, round, reactive to light. There was no pallor or cyanosis of the oral mucosa. There was no erythema or edema of the throat. NECK: Supple. No jugular venous distention. No carotid bruits. CHEST: Clear to auscultation and percussion. CARDIAC: Demonstrated normal S1 and S2 with a short 2/6 systolic murmur. ABDOMEN: Demonstrated good bowel sounds. No tenderness and no masses. EXTREMITIES: No clubbing, no cyanosis, and no edema. NEUROLOGICAL: The patient was alert and oriented x3. Cranial nerves II through XII are intact. Motor strength was +5/+5 in all limbs. IMAGING: The patient's EKG demonstrated normal sinus rhythm with a right bundle branch block. IMPRESSION: The patient is an 83-year-old with some frequent premature atrial contractions and some sinus bradycardia postoperatively. RECOMMENDATIONS: As follows: 1. The patient will need to be monitored on telemetry for more significant arrhythmias. 2. The patient will need his electrolytes checked. 3. The patient had normal echocardiogram done about two weeks ago. The echocardiogram demonstrated an ejection fraction of 55% to 60% and does not need to be repeated at this time. MD VIKY Osuna/CARLYL /[id number]
[2018-11-12] MEDS: SODIUM CHLORIDE 0.9% 250ML IRRIG IR SCH ×5 (02:05→15:41)
[2018-11-12] MEDS: CEFAZOLIN SOD 1 GM/NS 50ML 50 ML IV SCH ×3 (02:05→17:33)
[2018-11-12] MEDS: ALBUTEROL SULF 0.083% NEB SOLN 3 ML NEB NEB SCH ×6 (03:40→23:00)
[2018-11-12] MEDS: SOD CHL 0.45%/POT CHL 20MEQ 1,000 ML IV SCH ×2 (05:28→13:55)
[2018-11-12 05:49] LABS: ANION GAP 16.7 mmol/L (8-16); CALCIUM 9.1 mg/dL (8.4-10.2); CREATININE, SERUM 1.59 mg/dL (0.72-1.25); POTASSIUM 4.7 mmol/L (3.5-5.1)
[2018-11-12 06:59] LABS: BASOPHILS % 0.2 % (0.0-1.0); HEMATOCRIT 36.8 % (38.2-49.6); LYMPHOCYTES # (AUTO) 1.2 (1.0-3.2); LYMPHOCYTES % 12.3 % (18.0-39.1); MEAN CORPUSCULAR HEMOGLOBIN 33.7 pg (28-32); MEAN CORPUSCULAR HGB CONC 32.6 g/dL (31-35); MEAN CORPUSCULAR VOLUME 103.4 fL (81-99); MONOCYTES # (AUTO) 0.7 (0.2-0.8); NEUTROPHILS # (AUTO) 7.8 (2.1-6.9); PLATELET COUNT 139 x10e3/uL (140-360); RED BLOOD COUNT 3.56 x10e6/uL (4.3-5.7); RED CELL DISTRIBUTION WIDTH 13.4 % (11.7-14.4)
[2018-11-12] MEDS ORDERED: MORPHINE SULFATE 1 MG/ML 30ML PCA IV PRN (11:45)
--- NOTE | 2018-11-12 15:29 | NUR ---
Nutrition Screen Note RD Recommendation for Physician: -Rec advancing diet to ADA 2000/ cardiac diet as medically appropriate Plan of Care: RD following, monitoring for tolerance and adequacy Nutrition reason for involvement: Nutrition Risk Trigger MST Primary Diagnose(s): bladder tumor s/p partial cystectomy PMH: DM, HTN, HLD Ht: 69in Wt: 169lb BMI: 25.0kg/m2 IBW:160lb+/- 10% RD Assessment: (11/12) Chart reviewed. Labs and meds reviewed. 83yo M, who was admitted for bladder tumor. POD 1. Visited pt in the room. 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 No GI complains at this time. Weight has been stable. Pt has some missing teeth but denied the need for texture modification when diet is advanced. Currently NPO after surgery. NGT was removed. No flatus yet. Will continue to monitor and follow. Current Diet: NPO Malnutrition Evaluation (11/12/2018) The patient does not meet criteria for a specified degree of malnutrition at this time. Will re-evaluate at follow-up as appropriate. Diet Education Needs Assessment: Diet education not indicated. Nutrition Care Level: low Signed: Lenka Van, MS, RD, LD
[2018-11-13] VITALS (19 sets, daily range): BP systolic 105–146; BP diastolic 45–88
[2018-11-13] MEDS: SOD CHL 0.45%/POT CHL 20MEQ 1,000 ML IV SCH ×2 (00:26→06:42)
[2018-11-13] MEDS: ALBUTEROL SULF 0.083% NEB SOLN 3 ML NEB NEB SCH ×3 (02:45→11:10)
[2018-11-13] MEDS: CEFAZOLIN SOD 1 GM/NS 50ML 50 ML IV SCH ×3 (02:50→18:32)
[2018-11-13 05:14] LABS: BASOPHILS % 0.3 % (0.0-1.0); EOSINOPHILS # (AUTO) 0.1 (0.0-0.4); EOSINOPHILS % 0.9 % (0.0-6.0); HEMATOCRIT 34.4 % (38.2-49.6); HEMOGLOBIN 11.1 g/dL (14.0-18.0); LYMPHOCYTES # (AUTO) 1.6 (1.0-3.2); LYMPHOCYTES % 20.2 % (18.0-39.1); MEAN CORPUSCULAR HEMOGLOBIN 34.2 pg (28-32); MEAN CORPUSCULAR HGB CONC 32.3 g/dL (31-35); MEAN CORPUSCULAR VOLUME 105.8 fL (81-99); MONOCYTES # (AUTO) 0.7 (0.2-0.8); MONOCYTES % 8.9 % (4.4-11.3); NEUTROPHILS # (AUTO) 5.5 (2.1-6.9); NEUTROPHILS % 69.3 % (38.7-80.0); PLATELET COUNT 109 x10e3/uL (140-360); RED BLOOD COUNT 3.25 x10e6/uL (4.3-5.7); RED CELL DISTRIBUTION WIDTH 13.7 % (11.7-14.4)
[2018-11-13 05:38] LABS: ANION GAP 12.1 mmol/L (8-16); BLOOD UREA NITROGEN 19 mg/dL (7-26); CARBON DIOXIDE 27 mmol/L (22-29); CHLORIDE 104 mmol/L (98-107); CREATININE, SERUM 1.08 mg/dL (0.72-1.25); POTASSIUM 4.1 mmol/L (3.5-5.1); SODIUM 139 mmol/L (136-145)
[2018-11-13 05:39] LABS: BUN/CREATININE RATIO 18 (6-25); CALCIUM 8.6 mg/dL (8.4-10.2); EST GLOMERULAR FILTRATION RATE > 60 ML/MIN (60-); GLUCOSE 73 mg/dL (74-118)
--- NOTE | 2018-11-13 12:14 | NUR ---
PT STATTES IN TOO MUCH PAIN WANT TO DEFER DPA TO LATER TIME
[2018-11-13] MEDS ORDERED: ACETAMINOPHEN/CODEINE 300MG - 30MG TAB PO PRN (13:45)
[2018-11-13] MEDS ORDERED: BISACODYL 10 MG SUPP PR ONE (14:00)
[2018-11-13] MEDS ORDERED: MAGNESIUM HYDROXIDE 30 ML UDC PO PRN (15:45)
[2018-11-13] MEDS ORDERED: ALBUTEROL/IPRATROPIUM 3 ML NEB NEB PRN (15:45)
[2018-11-13] MEDS ORDERED: DEXTROSE 50% SYRINGE 50 ML IV PRN (15:45)
--- NOTE | 2018-11-13 16:00 | NUR ---
pt transferred to room 114 after calling report. left vm for kieran Maddox with updated information. pt on telemetry. tolerates transfer well.
[2018-11-13] MEDS: INSULIN LISPRO 100 UNIT/1 ML 3ML VIAL SQ SCH ×2 (16:30→20:58)
--- NOTE | 2018-11-13 16:30 | NUR ---
Received patient from ICU. Respiration even and unlabored without SoB. Call light in reach.
[2018-11-13] MEDS ORDERED: DOCUSATE SODIUM LIQD 100 MG/10 ML UDC NG SCH (17:00)
[2018-11-13] MEDS: SENNOSIDES 8.6 MG TAB PO SCH (17:30)
[2018-11-13] MEDS: HYDROCODONE/APAP 10MG-325MG TAB PO PRN (17:31)
--- NOTE | 2018-11-13 18:20 | NUR ---
Patient's PIV to right AC discontinued due to leakage. Catheter tip intact. No bleeding noted.
--- NOTE | 2018-11-13 18:24 | NUR ---
2 attempts at a new IV and both unsuccessful. Will inform maintenance supervisor 2nd shift
--- NOTE | 2018-11-13 18:59 | NUR ---
Report given to patient financial specialist. Patient awake lying in bed with eyes open. respiration even and unlabored without SOB. Call light in reach.
--- NOTE | 2018-11-13 20:00 | NUR ---
PATIENT STATES IF HE CAN REST FROM BEING STUCK AT THIS MOMENT HE WANTS TO SLEEP.
[2018-11-13] MEDS: TAMSULOSIN HCL 0.4 MG CAP PO SCH (20:57)
--- NOTE | 2018-11-13 22:59 | History and Physical ---
PRIMARY CARE PHYSICIAN: Dr. Yasir Jameson. TRACKMOBILE OPERATOR: 1. Dr. Scott Limon. 2. Dr. Bri Sanchez. CHIEF COMPLAINT: Urinary bladder cancer, status post partial cystectomy. HISTORY OF PRESENT ILLNESS: An 83-year-old male with status post partial cystectomy. The patient underwent cystectomy for urinary bladder tumor. He also had bilateral lymph node dissection. At baseline, the patient has diabetes type 2, hypertension, dyslipidemia. The patient is stable. Postoperatively, the patient with sinus bradycardia, but asymptomatic. PAST MEDICAL HISTORY: Urinary bladder cancer, diabetes type 2, hypertension, dyslipidemia. PAST SURGICAL HISTORY: Status post partial cystectomy. SOCIAL HISTORY: The patient does not smoke or use alcohol. No recreational drug use. ALLERGIES: NO KNOWN ALLERGIES. HOME MEDICATIONS: List reviewed. REVIEW OF SYSTEMS: Postop care. PHYSICAL EXAMINATION: VITAL SIGNS: Temperature is 98, blood pressure 100/49, pulse rate 59, respirations 18. GENERAL: The patient is not in acute distress. HEENT: Normocephalic, atraumatic. Pupils reactive. Anicteric. NECK: Supple grossly. PULMONARY: Diminished breath sounds without any wheezing or rales. CARDIOVASCULAR: Bradycardia. ABDOMEN: Soft, status post partial cystectomy. NEUROLOGIC: No focal deficit. LABORATORY DATA: Sodium is 140, potassium 4.7, chloride 102, bicarb 26, BUN 26, creatinine 1.6, glucose 126. WBC is 9.7, hemoglobin 12, hematocrit 36.8, platelets 139. ASSESSMENT: 1. Status post partial cystectomy secondary to urinary bladder cancer. The patient also had bilateral lymph node dissection. 2. Bradycardia, asymptomatic. 3. Postoperative care. PLAN: Continue with postoperative care. Check the patient's lab work. COLD MOLDING PRESS OPERATOR for pain control. Nebulizer treatment for decreasing heart rate. The patient is otherwise stable at this time. MD BRAYDEN Melendrez/STEFANY /[id number]
[2018-11-14] VITALS (8 sets, daily range): BP systolic 109–141; BP diastolic 63–83
[2018-11-14] MEDS: CEFAZOLIN SOD 1 GM/NS 50ML 50 ML IV SCH ×3 (02:03→17:49)
[2018-11-14 06:44] LABS: BASOPHILS % 0.4 % (0.0-1.0); EOSINOPHILS # (AUTO) 0.1 (0.0-0.4); HEMATOCRIT 38.7 % (38.2-49.6); HEMOGLOBIN 12.4 g/dL (14.0-18.0); LYMPHOCYTES # (AUTO) 0.9 (1.0-3.2); LYMPHOCYTES % 13.4 % (18.0-39.1); MEAN CORPUSCULAR HEMOGLOBIN 33.9 pg (28-32); MEAN CORPUSCULAR VOLUME 105.7 fL (81-99); MONOCYTES # (AUTO) 0.7 (0.2-0.8); MONOCYTES % 9.7 % (4.4-11.3); NEUTROPHILS # (AUTO) 5.1 (2.1-6.9); NEUTROPHILS % 74.1 % (38.7-80.0); PLATELET COUNT 122 x10e3/uL (140-360); RED BLOOD COUNT 3.66 x10e6/uL (4.3-5.7); RED CELL DISTRIBUTION WIDTH 13.4 % (11.7-14.4)
--- NOTE | 2018-11-14 07:00 | NUR ---
BEDSIDE SHIFT REPORT RECEIVED FROM CLINICAL TRAINING SPECIALIST RN. PT DENIES NEEDS AT THIS TIME.
--- NOTE | 2018-11-14 07:00 | NUR ---
BEDSIDE SHIFT REPORT RECEIVED FROM EDITOR GREETING CARD RN. PT DENIES NEEDS AT THIS TIME.
--- NOTE | 2018-11-14 07:02 | NUR ---
Carlos Limon for abnormal EKG rhythm from telemetry A fib with RVR. Patient is asymptomatic.
[2018-11-14 07:09] LABS: ANION GAP 14.6 mmol/L (8-16); BLOOD UREA NITROGEN 17 mg/dL (7-26); BUN/CREATININE RATIO 16 (6-25); CALCIUM 9.5 mg/dL (8.4-10.2); CARBON DIOXIDE 25 mmol/L (22-29); CHLORIDE 103 mmol/L (98-107); CREATININE, SERUM 1.06 mg/dL (0.72-1.25); EST GLOMERULAR FILTRATION RATE > 60 ML/MIN (60-); GLUCOSE 78 mg/dL (74-118); POTASSIUM 4.6 mmol/L (3.5-5.1); SODIUM 138 mmol/L (136-145)
[2018-11-14] MEDS: INSULIN LISPRO 100 UNIT/1 ML 3ML VIAL SQ SCH ×4 (07:30→20:58)
[2018-11-14] MEDS: HYDROCODONE/APAP 10MG-325MG TAB PO PRN (07:55)
[2018-11-14] MEDS: SENNOSIDES 8.6 MG TAB PO SCH ×2 (08:01→17:49)
[2018-11-14] MEDS: GLIPIZIDE 2.5 MG TABCR PO SCH (09:18)
[2018-11-14] MEDS ORDERED: BISACODYL 10 MG SUPP PR ONE (09:30)
--- NOTE | 2018-11-14 14:54 | NUR ---
PT SLEEPING AND REQUESTS RETURN AT LATER TIME FOR DPA
[2018-11-14] MEDS: AMIODARONE HCL 200 MG TAB PO SCH ×2 (15:33→20:58)
[2018-11-14] MEDS: ATORVASTATIN 40 MG TAB PO SCH (20:58)
[2018-11-14] MEDS: ENOXAPARIN INJ 80 MG/0.8 ML SYR SC SCH (20:58)
[2018-11-14] MEDS: TAMSULOSIN HCL 0.4 MG CAP PO SCH (20:58)
[2018-11-15] VITALS (8 sets, daily range): BP systolic 124–166; BP diastolic 59–95
[2018-11-15] MEDS: CEFAZOLIN SOD 1 GM/NS 50ML 50 ML IV SCH ×3 (01:53→17:30)
--- NOTE | 2018-11-15 04:00 | NUR ---
Patient requested to removed KENDRA hose stocking and scd's because he's lower extremities are so sore.
[2018-11-15 06:05] LABS: BASOPHILS % 0.4 % (0.0-1.0); EOSINOPHILS # (AUTO) 0.1 (0.0-0.4); EOSINOPHILS % 1.2 % (0.0-6.0); HEMATOCRIT 36.4 % (38.2-49.6); HEMOGLOBIN 12.1 g/dL (14.0-18.0); LYMPHOCYTES # (AUTO) 1.2 (1.0-3.2); LYMPHOCYTES % 16.7 % (18.0-39.1); MEAN CORPUSCULAR HEMOGLOBIN 34.2 pg (28-32); MEAN CORPUSCULAR HGB CONC 33.2 g/dL (31-35); MEAN CORPUSCULAR VOLUME 102.8 fL (81-99); MONOCYTES # (AUTO) 0.8 (0.2-0.8); NEUTROPHILS # (AUTO) 5.2 (2.1-6.9); NEUTROPHILS % 70.2 % (38.7-80.0); PLATELET COUNT 133 x10e3/uL (140-360); RED BLOOD COUNT 3.54 x10e6/uL (4.3-5.7); RED CELL DISTRIBUTION WIDTH 13.2 % (11.7-14.4)
[2018-11-15] MEDS ORDERED: ONDANSETRON HCL 4 MG ORAL DISINTEGRATING TAB PO PRN (07:00)
--- NOTE | 2018-11-15 07:00 | NUR ---
BEDSIDE SHIFT REPORT RECEIVED FROM VEGETABLE WASHING MACHINE OPERATOR RN. PT DENIES NEEDS AT THIS TIME.
[2018-11-15 07:08] LABS: ANION GAP 15.7 mmol/L (8-16); CALCIUM 9.9 mg/dL (8.4-10.2); CREATININE, SERUM 1.26 mg/dL (0.72-1.25)
[2018-11-15 07:26] LABS: POTASSIUM 5.7 mmol/L (3.5-5.1)
[2018-11-15] MEDS: INSULIN LISPRO 100 UNIT/1 ML 3ML VIAL SQ SCH ×4 (07:30→21:00)
[2018-11-15] MEDS: ENOXAPARIN INJ 80 MG/0.8 ML SYR SC SCH ×2 (09:29→21:56)
[2018-11-15] MEDS: AMIODARONE HCL 200 MG TAB PO SCH ×3 (09:29→21:56)
[2018-11-15] MEDS: GLIPIZIDE 2.5 MG TABCR PO SCH (09:29)
[2018-11-15] MEDS: SENNOSIDES 8.6 MG TAB PO SCH ×2 (09:29→17:30)
--- NOTE | 2018-11-15 12:01 | NUR ---
EDUCATED ABOUT IMM, SIGNED, FILED IN CHART, WITH COPY LEFT WITH FAMILY AT BEDSIDE.
--- NOTE | 2018-11-15 16:11 | NUR ---
TALKED TO DR. CONTRERAS REQUESTED BY DR. PERRY ABOUT PLANS FOR PT. REPLY WAS NO DISCHARGE UNTIL EVALUATED FURTHER WITH BLOOD THINNERS AND BETA BLOCKERS.
--- NOTE | 2018-11-15 19:28 | NUR ---
WALKING ROUNDS PERFORMED, RECEIVED PT LAYING SEMI FOWLERS IN BED, AAOX3, RR EVEN AND NON-LABORED, ON ROOM AIR. NO S/SX OF DISTRESS NOTED. DRESSING TO ANTERIOR ABD NOTED TO BE CDI, LACEY DRAIN INTACT. LEFT PT LAYING SEMI FOWLERS IN BED, BED IN LOW LOCKED POSITION, SIDE RAILS UPX2, CALL LIGHT AND PHONE WITHIN REACH.
[2018-11-15] MEDS: ATORVASTATIN 40 MG TAB PO SCH (21:56)
[2018-11-15] MEDS: TAMSULOSIN HCL 0.4 MG CAP PO SCH (21:56)
[2018-11-16] VITALS (8 sets, daily range): BP systolic 129–189; BP diastolic 62–80
[2018-11-16] MEDS: CEFAZOLIN SOD 1 GM/NS 50ML 50 ML IV SCH ×3 (02:15→18:18)
--- NOTE | 2018-11-16 05:45 | NUR ---
DRESSING CHANGE TO (L) LACEY DRAIN PERFORMED. APPLIED DRAIN SPONGE AND SECURED WITH PAPER TAPE.
[2018-11-16 05:57] LABS: BASOPHILS % 0.2 % (0.0-1.0); EOSINOPHILS # (AUTO) 0.1 (0.0-0.4); EOSINOPHILS % 2.1 % (0.0-6.0); HEMATOCRIT 34.9 % (38.2-49.6); HEMOGLOBIN 11.6 g/dL (14.0-18.0); LYMPHOCYTES % 16.3 % (18.0-39.1); MEAN CORPUSCULAR HEMOGLOBIN 34.5 pg (28-32); MEAN CORPUSCULAR HGB CONC 33.2 g/dL (31-35); MEAN CORPUSCULAR VOLUME 103.9 fL (81-99); MONOCYTES # (AUTO) 0.7 (0.2-0.8); MONOCYTES % 11.3 % (4.4-11.3); NEUTROPHILS # (AUTO) 4.3 (2.1-6.9); NEUTROPHILS % 69.6 % (38.7-80.0); PLATELET COUNT 133 x10e3/uL (140-360); RED BLOOD COUNT 3.36 x10e6/uL (4.3-5.7); RED CELL DISTRIBUTION WIDTH 13.4 % (11.7-14.4)
[2018-11-16 06:15] LABS: ANION GAP 14.2 mmol/L (8-16); BLOOD UREA NITROGEN 25 mg/dL (7-26); BUN/CREATININE RATIO 23 (6-25); CALCIUM 9.6 mg/dL (8.4-10.2); CARBON DIOXIDE 25 mmol/L (22-29); CHLORIDE 107 mmol/L (98-107); CREATININE, SERUM 1.09 mg/dL (0.72-1.25); EST GLOMERULAR FILTRATION RATE > 60 ML/MIN (60-); GLUCOSE 73 mg/dL (74-118); POTASSIUM 5.2 mmol/L (3.5-5.1); SODIUM 141 mmol/L (136-145)
--- NOTE | 2018-11-16 07:06 | NUR ---
received report from table machine operator RN, pt resting comfortably in bed, respirations even and nonlabored, no distress noted, in stable condition, call light within reach, will continue to monitor.
[2018-11-16] MEDS: INSULIN LISPRO 100 UNIT/1 ML 3ML VIAL SQ SCH ×4 (07:30→20:18)
[2018-11-16] MEDS: AMIODARONE HCL 200 MG TAB PO SCH ×2 (09:19→16:18)
[2018-11-16] MEDS: SENNOSIDES 8.6 MG TAB PO SCH ×2 (09:19→16:18)
[2018-11-16] MEDS: ENOXAPARIN INJ 80 MG/0.8 ML SYR SC SCH (09:19)
[2018-11-16] MEDS: GLIPIZIDE 2.5 MG TABCR PO SCH (09:19)
[2018-11-16] MEDS ORDERED: FUROSEMIDE INJ 10 MG/ML 4 ML VIAL IV ONE (14:30)
--- NOTE | 2018-11-16 14:30 | NUR ---
paged dr lagos re: pt wanting to speak with him, awaiting call back
--- NOTE | 2018-11-16 15:48 | NUR ---
LACEY drain d/c'd as per ordered, less than 10 cc of fluid in drain at time of discharge. wound covered with 4x4 gauze and tape. will continue to monitor.
--- NOTE | 2018-11-16 16:00 | NUR ---
paged dr lagos re: pt wanting to speak with him awaiting call back
[2018-11-16] MEDS: APIXAB 2.5 MG TABLET PO SCH (16:18)
--- NOTE | 2018-11-16 18:53 | NUR ---
report given to oncoming shift lab technician RN, pt laying in bed in semi-muñoz's position, awake, alert, no distress noted, call light within reach, in stable condition.
--- NOTE | 2018-11-16 18:58 | NUR ---
WALKING ROUNDS PERFORMED, RECEIVED PT LAYING SEMI FOWLERS IN BED, AAOX3, RR EVEN AND NON-LABORED, ON ROOM AIR. NO S/SX OF DISTRESS NOTED. LOPEZ TO BEDSIDE BAG. INCISION TO ANTERIOR ABD NOTED TO BE CDI, OPEN TO AIR. LEFT PT LAYING SEMI FOWLERS IN BED, BED IN LOW LOCKED POSITION, SIDE RAILS UP X2, CALL LIGHT AND PHONE WITHIN REACH.
[2018-11-16] MEDS: ATORVASTATIN 40 MG TAB PO SCH (20:18)
[2018-11-16] MEDS: TAMSULOSIN HCL 0.4 MG CAP PO SCH (20:18)
--- NOTE | 2018-11-16 21:24 | NUR ---
NOTIFIED BY TELEMETRY PATIENT CONVERTED TO AFIB 120-160'S. PAGE PLACED FOR MD Tru CARDONA. WAITING FOR CALLBACK.
[2018-11-16] MEDS ORDERED: DILTIAZEM HCL 5 MG/ML 5 ML VIAL IV ONE (21:30)
--- NOTE | 2018-11-16 21:30 | NUR ---
SPOKE WITH MD Tru SLAUGHTER CONCERNING CONVERSION TO AFIB. NEW ORDERS RECEIVED.
--- NOTE | 2018-11-16 22:44 | NUR ---
PT HAS CONVERTED BACK TO NSR WITH BBB AT 82, WILL NON-ADMIN CARDIZEM X1 DOSE.
[2018-11-17] VITALS: BP 141/60
[2018-11-17] MEDS: CEFAZOLIN SOD 1 GM/NS 50ML 50 ML IV SCH ×3 (02:44→17:07)
[2018-11-17 04:00] VITALS: BP 136/64
--- NOTE | 2018-11-17 07:00 | NUR ---
bedside shift report received pt in stable condition, denies pain at this time, sahu to bsd with yellow urine noted, no other co voiced call light in reach will continue to monitor
[2018-11-17] MEDS: INSULIN LISPRO 100 UNIT/1 ML 3ML VIAL SQ SCH ×3 (07:30→16:30)
[2018-11-17 07:54] VITALS: BP 145/65
[2018-11-17 07:54] LABS: BASOPHILS % 0.3 % (0.0-1.0); EOSINOPHILS # (AUTO) 0.2 (0.0-0.4); HEMATOCRIT 34.9 % (38.2-49.6); HEMOGLOBIN 11.8 g/dL (14.0-18.0); LYMPHOCYTES # (AUTO) 1.1 (1.0-3.2); LYMPHOCYTES % 19.1 % (18.0-39.1); MEAN CORPUSCULAR HEMOGLOBIN 34.3 pg (28-32); MEAN CORPUSCULAR HGB CONC 33.8 g/dL (31-35); MEAN CORPUSCULAR VOLUME 101.5 fL (81-99); MONOCYTES # (AUTO) 0.8 (0.2-0.8); MONOCYTES % 14.1 % (4.4-11.3); NEUTROPHILS # (AUTO) 3.6 (2.1-6.9); NEUTROPHILS % 63.2 % (38.7-80.0); PLATELET COUNT 159 x10e3/uL (140-360); RED BLOOD COUNT 3.44 x10e6/uL (4.3-5.7); RED CELL DISTRIBUTION WIDTH 13.3 % (11.7-14.4)
[2018-11-17 08:09] LABS: ALANINE AMINOTRANSFERASE 9 IU/L (0-55); ALBUMIN 2.5 g/dL (3.5-5.0); ALBUMIN/GLOBULIN RATIO 0.8 (0.8-2.0); ALKALINE PHOSPHATASE 60 IU/L (40-150); ANION GAP 13.8 mmol/L (8-16); BLOOD UREA NITROGEN 24 mg/dL (7-26); BUN/CREATININE RATIO 23 (6-25); CALCIUM 9.6 mg/dL (8.4-10.2); CARBON DIOXIDE 26 mmol/L (22-29); CHLORIDE 105 mmol/L (98-107); CREATININE, SERUM 1.06 mg/dL (0.72-1.25); EST GLOMERULAR FILTRATION RATE > 60 ML/MIN (60-); GLUCOSE 93 mg/dL (74-118); POTASSIUM 3.8 mmol/L (3.5-5.1); SODIUM 141 mmol/L (136-145)
[2018-11-17 08:44] VITALS: BP 145/65
[2018-11-17] MEDS: APIXAB 2.5 MG TABLET PO SCH ×2 (09:40→17:07)
[2018-11-17] MEDS: AMIODARONE HCL 200 MG TAB PO SCH ×2 (09:40→17:07)
[2018-11-17] MEDS: GLIPIZIDE 2.5 MG TABCR PO SCH (09:40)
[2018-11-17] MEDS: SENNOSIDES 8.6 MG TAB PO SCH ×2 (09:40→17:07)
[2018-11-17 13:35] VITALS: BP 156/70
[2018-11-17 17:15] VITALS: BP 179/77
[2018-11-17] MEDS ORDERED: Eliquis PO (17:49)
[2018-11-17] MEDS ORDERED: AMIODARONE HCL200 MG PO (17:50)
[2018-11-17] MEDS ORDERED: BACTRIM DS TAB1 EACH PO (17:51)
[2018-11-17] MEDS ORDERED: TYLENOL WITH C1 EACH PO (17:51)
[2018-11-17] MEDS ORDERED: COLACE100 MG PO (17:51)
--- NOTE | 2018-11-17 18:29 | NUR ---
pt educated and demonstrated back to nurse how to change between leg bag and bedside bag.
--- NOTE | 2018-11-18 04:56 | Discharge Summary ---
ADDENDUM: Urology cleared the patient for discharge home. He added Bactrim for discharge antibiotic as well as Colace and Tylenol No. 3. As per Cardiology, he was also cleared by Cardiology standpoint, was discharged on amiodarone as well as Eliquis. Now, the patient is cleared for discharge home. MD DM Glass/STEFANY /[id number]
--- NOTE | 2018-11-18 05:21 | Discharge Summary ---
FINAL DISCHARGE DIAGNOSES: 1. Status post cystoscopy with retrograde pyelogram with bilateral stent placement. 2. Partial cystectomy with bilateral lymph node adenectomy. 3. Atrial fibrillation. 4. Hypertension. 5. Hyperkalemia, resolved. CONSULTANTS: Urology and Cardiology. PHYSICAL EXAMINATION: VITAL SIGNS: Temperature is 96.5, pulse 66, respiratory rate is 20, blood pressure 156/70, pulse ox 97% on room air. LAB FINDINGS: Show white count of 5.7, hemoglobin 11.8, hematocrit is 34.9, and platelets of 159. Chemistry; sodium 141, potassium 3.8, chloride 105, bicarb 26, anion gap of 13, BUN 24, creatinine is 1.06, glucose 93, calcium 9.6, total bilirubin 0.4, AST 17, ALT 9, alkaline phosphatase 60, albumin 2.5. MICROBIOLOGY: None. IMAGING STUDIES: Chest x-ray on 11/11/2018, shows no pneumothorax. No focal pneumonia or pulmonary edema. NG tube projects below the diaphragm with the tip not seen. HOSPITAL COURSE: This is an 83-year-old male, who has a history of urinary bladder cancer, comes in and undergoes a status post partial cystectomy with bilateral ureteral stent placement performed by Urology, Dr. Sanchez. Cardiology was consulted for cardiac clearance prior to the procedure. Postoperatively, he did well with no complaints. The patient also underwent bilateral lymph node dissection. He was advised to follow up with Urology as an outpatient for biopsy results and further management and care. The patient was cleared for discharge by Cardiology and Urology for discharge to home. The patient is to continue with same home medications with no changes. He was cleared for discharge by both consultants. On the day of discharge, vital signs were stable, labs reviewed and stable. The patient was seen and evaluated, examined thoroughly on the day of discharge. No other complaints. The patient verbalized understanding and agrees to plan of care to follow up accordingly as an outpatient with the primary care physician in 1 week, Urology in 2 weeks, and Cardiology in 2 weeks' time. The patient also found to have some mild hyperkalemia, but was treated appropriately with a discharge potassium of 3.8 and the rest of electrolytes are stable. MEDICATIONS: See med reconciliation form. DISPOSITION: To home. CONDITION: Stable. DIET: Heart healthy. In the event of any worsening symptoms, the patient advised to come back to the ED for further evaluation. Discharge summary took greater than 35 minutes. MD DM Glass/STEFANY /[id number]
== END 2018-11-17 19:08 | disposition home health service (06) | DRG 654 ==
LOC: SURG 10:00 → PACU V 14:44 → ICU 16:22 → MED/SURG 11-13 16:15
PROVIDERS: ADMIT Internal Medicine; ATTEND Internal Medicine
PROC: BT141ZZ Fluoroscopy of Kidneys, Ureters and Bladder using Low Osmolar Contrast (ICD-10-PCS; 2018-11-11)
PROC: 0TBB0ZZ Excision of Bladder, Open Approach (ICD-10-PCS; principal; 2018-11-11 12:00)
PROC: 07TC0ZZ Resection of Pelvis Lymphatic, Open Approach (ICD-10-PCS; 2018-11-11 12:00)
DX: C67.9 Malignant neoplasm of bladder, unspecified (principal); I97.191 Other postprocedural cardiac functional disturbances following other surgery; R31.9 Hematuria, unspecified; I25.10 Atherosclerotic heart disease of native coronary artery without angina pectoris; E11.9 Type 2 diabetes mellitus without complications; I10 Essential (primary) hypertension; E78.5 Hyperlipidemia, unspecified; I49.8 Other specified cardiac arrhythmias; I49.1 Atrial premature depolarization; Z79.84 Long term (current) use of oral hypoglycemic drugs; E66.9 Obesity, unspecified; N40.0 Benign prostatic hyperplasia without lower urinary tract symptoms; Z68.24 Body mass index [BMI] 24.0-24.9, adult; E87.5 Hyperkalemia
CPT/HCPCS: 36415; 71045; 74420; 80048; 80053; 82948; 83735; 84132; 85025; 88305; 88307; 88331; 93005; 94640; 97139; C1758; J0690; J1100; J1650; J1940; J2001; J2270; J2405; J3010

== ENCOUNTER → 2019-04-21 | Outpatient (CLI) | payer MEDICARE ==
[~2019-04-21] MED LIST changes: +AMIODARONE HCL200 MG PO; +BACTRIM DS TAB1 EACH PO; +COLACE100 MG PO; +Eliquis PO; +IOPAMIDOL 370 MG/ML 200 ML INFUS..BTL INJ ONE; +SODIUM CHLORIDE 0.9% 250ML 500 ML ONE; +SODIUM CHLORIDE 0.9% 50ML 50 ML ONE; +TYLENOL WITH C1 EACH PO
[2019-04-21 08:30] LABS: CREATININE, SERUM 1.5 mg/dL (0.72-1.25)
--- NOTE | 2019-04-21 10:36 | Diagnostic Imaging Report ---
EXAMINATION: CT of the abdomen and pelvis with contrast. TECHNIQUE: Spiral CT images of the abdomen and pelvis were performed from the lung bases to the lesser trochanters after the intravenous administration of 100 cc of Isovue 300. Coronal and sagittal reformatted images were obtained. COMPARISON: CT abdomen and pelvis without contrast 07/17/2018 CLINICAL HISTORY:Bladder neoplasm DISCUSSION: ABDOMEN/PELVIS: LOWER THORAX:Lung bases are unremarkable. Small sliding hiatal hernia. HEPATOBILIARY: No focal hepatic lesions. No intra-or extrahepatic biliary ductal dilation. Limited related calculus within the gallbladder lumen. Gallbladder otherwise unremarkable. SPLEEN: No splenomegaly or focal splenic lesion. PANCREAS: No significant interval change in size of cystic lesions in the anterior pancreatic neck measuring 2 cm and uncinate process measuring 1.6 cm. Each lesion has internal contents of attenuation less than 20 Hounsfield units. Coarse calcifications in the pancreatic body and tail are again noted. No ductal dilatation. ADRENALS: No adrenal nodules. KIDNEYS/URETERS: Exophytic cysts projecting from the right upper pole and left lower pole are again noted, along with parenchymal cysts in the left upper pole and right interpolar region. All have average internal attenuation less than 20 Hounsfield units. Punctate nonobstructing calculi in the bilateral lower pole collecting systems. No hydronephrosis. Mild nonspecific perinephric fat stranding is unchanged. PELVIC ORGANS/BLADDER: 1.4 cm intraluminal polypoid lesion along the left anterolateral urinary bladder wall seen on series 2 image 66. Urinary bladder is otherwise unremarkable. The prostate is enlarged, measuring 5.3 cm transversely with coarse central calcifications. PERITONEUM/RETROPERITONEUM: No ascites or pneumoperitoneum. LYMPH NODES: Changes of interval pelvic lymph node dissection without pelvic sidewall, retroperitoneal, or mesenteric lymphadenopathy. VESSELS: No appreciable interval change in the appearance of 3.4 cm saccular dilatation of the infrarenal abdominal aorta. 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 Diffuse atherosclerotic calcification throughout the abdominal aorta, major branch vessels, and iliac arterial systems. Portal vein is patent. GI TRACT: The large bowel is notable for multiple diverticula scattered along the descending and sigmoid colon without evidence of diverticulitis. Stable postsurgical changes of right hemicolectomy with fat necrosis along the anterior peritoneal surface adjacent to the right liver edge. The stomach is collapsed with prominent rugal folds. No small bowel dilatation to suggest obstruction. BONES AND SOFT TISSUE: Interval postsurgical changes of the low anterior abdominal wall. No osseous destructive lesions. IMPRESSION: Interval postsurgical changes of the bladder and pelvic lymph node stations as above. There is a 1.4 cm polypoid lesion along the anterolateral luminal surface of the urinary bladder concerning for residual or recurrent tumor. Cystoscopic evaluation is suggested. No evidence of metastatic disease within the abdomen or pelvis. 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 Incidental findings include bilateral nonobstructing renal calculi, cholelithiasis, and large bowel diverticulosis without findings of diverticulitis. Signed by: Dr. Scott Fuentes M.D. on 04/21/2019 10:34 AM
== END ==
LOC: CT 07:31
PROVIDERS: ATTEND Urology
DX: C67.9 Malignant neoplasm of bladder, unspecified (principal)
CPT/HCPCS: 36415; 74177; 82565; 84520; J7050; Q9967

== ENCOUNTER → 2019-04-23 | Day surgery (SDC) | payer MEDICARE ==
[2019-04-21 13:42] LABS: BASOPHILS % 0.4 % (0.0-1.0); EOSINOPHILS # (AUTO) 0.1 (0.0-0.4); HEMATOCRIT 37.1 % (38.2-49.6); HEMOGLOBIN 12.5 g/dL (14.0-18.0); LYMPHOCYTES # (AUTO) 1.3 (1.0-3.2); MEAN CORPUSCULAR HEMOGLOBIN 35.1 pg (28-32); MEAN CORPUSCULAR HGB CONC 33.7 g/dL (31-35); MEAN CORPUSCULAR VOLUME 104.2 fL (81-99); MONOCYTES # (AUTO) 0.5 (0.2-0.8); NEUTROPHILS # (AUTO) 5.1 (2.1-6.9); NEUTROPHILS % 73.2 % (38.7-80.0); PLATELET COUNT 156 x10e3/uL (140-360); RED BLOOD COUNT 3.56 x10e6/uL (4.3-5.7); RED CELL DISTRIBUTION WIDTH 13.2 % (11.7-14.4)
[2019-04-21 13:59] LABS: ANION GAP 14.4 mmol/L (8-16); CALCIUM 8.9 mg/dL (8.4-10.2); CREATININE, SERUM 1.35 mg/dL (0.72-1.25); POTASSIUM 3.4 mmol/L (3.5-5.1)
[~2019-04-23] MED LIST changes: +B&O 60MG R/S 60 MG SUPP PR ONE; +CEFAZOLIN SOD 1 GM/NS 50ML 50 ML IV ONE; +DEXAMETHASONE SOD PHOS INJ 4 MG/ML VIAL ONE; +IOPAMIDOL 300MG/ML 50ML INFUS..BTL IV ONE; -IOPAMIDOL 370 MG/ML 200 ML INFUS..BTL INJ ONE; +LIDOCAINE HCL 2% LOCAL INJ 5 ML SDV VIAL INJ ONE; +ONDANSETRON HCL INJ 2MG/ML 2ML 2 MG/ML VIAL ONE; +PROPOFOL IV EMULSION 10 MG/ML 20 ML VIAL ONE; +ROCURONIUM BROMIDE 10 MG/ML 5ML VIAL ONE; +SEVOFLURANE INHAL SOLN 250 ML PEN BTL ONE; -SODIUM CHLORIDE 0.9% 250ML 500 ML ONE; -SODIUM CHLORIDE 0.9% 50ML 50 ML ONE; +SUGAMMADEX SODIUM 200 MG/2 ML VIAL IV ONE
[2019-04-23 12:20] VITALS: BP 139/72
--- NOTE | 2019-04-23 22:18 | Operative Report ---
DATE OF PROCEDURE: 04/23/2019 SURGEON: Bri Sanchez MD SERVICE: Urology PREOPERATIVE DIAGNOSES: 1. Recurrent transitional cell cancer of the bladder two areas. 2. Microhematuria. 3. BPH. POSTOPERATIVE DIAGNOSES: 1. Recurrent transitional cell cancer of the bladder two areas. 2. Microhematuria. 3. BPH. OPERATIONS PERFORMED: 1. Cystoscopy and bilateral retrograde pyelograms under fluoroscopic control. This is done to assist the upper tract due to the hematuria and the transitional cell cancer of the bladder. 2. Interpretation of x-ray, radiologist not present. 3. Supervision of fluoroscopy, radiologist not present. 4. Transurethral resection of two areas tumor combines 5 cm. OUTREACH PROFESSIONAL: None. ANESTHESIA: General. CLINICAL INDICATION NOTE: This is an 83-year-old patient who underwent partial cystectomy for transitional cell cancer of the bladder. At that time, he did not agree to a to a radical cystectomy. Two areas of recurring tumor identified on cystoscopy was brought for removal and assessment of the upper tract. Procedures were discussed with the patient potential benefit and complication discussed explained and accepted. DESCRIPTION OF PROCEDURE AND FINDING: After proper level of anesthesia were achieved, the patient was placed in the lithotomy position, prepped and draped in a sterile fashion. Urethra inspected is unremarkable. This was obstructed by the small prostate. All this trabeculated. Two areas of stool present on the anterior wall of the bladder, one on the right side, the other one more toward the center. The both ureteral orifices were identified. Cone-tip catheter was used and bilateral retrograde pyelograms were done under fluoroscopic control. No intrinsic lesions are present. Drainage was prompt. Following this, the resectoscope was inserted and resection of both areas of tumor was carried out. Following this, the areas were carefully coagulated and any visiting point as well as the area base of the tumor were coagulated. A 22-Urdu three way Horn catheter, 30 mL balloon was then inserted and patient was transferred in satisfactory condition to recovery room. All these were given, and a followup as well. Bri Sanchez MD NH/MODL /[id number]
== END | disposition home or self-care (01) ==
LOC: OR 06:25
PROVIDERS: ATTEND Urology
DX: C67.3 Malignant neoplasm of anterior wall of bladder (principal); N40.0 Benign prostatic hyperplasia without lower urinary tract symptoms; I25.10 Atherosclerotic heart disease of native coronary artery without angina pectoris; I71.4 Abdominal aortic aneurysm, without rupture; E11.22 Type 2 diabetes mellitus with diabetic chronic kidney disease; I48.0 Paroxysmal atrial fibrillation; N18.4 Chronic kidney disease, stage 4 (severe); I45.10 Unspecified right bundle-branch block; Z01.810 Encounter for preprocedural cardiovascular examination; Z01.812 Encounter for preprocedural laboratory examination; Z87.891 Personal history of nicotine dependence
CPT/HCPCS: 36415 ×2; 52235; 74420; 80048; 82948; 85025; 88307; 93005 ×2; C1758 ×2; J0690; J1100; J2001; J2405; J2704; Q9967; 88305